=== PATIENT | male | born 1960 | race Caucasian/White ===

== ENCOUNTER 2023-09-23 17:33 | Inpatient (IN) | payer BC, SELFPAY ==
[2023-09-23] VITALS (17 sets, daily range): BP systolic 90–137; BP diastolic 54–80; PULSE 114–130; RESP 14–27; TEMP 37.1; O2SAT 65–97
--- NOTE | ~2023-09-23 | CT_ITS ---
EXAMINATION: CTA chest PE abdomen pel DATE: 09/23/2023 19:44 INDICATION: SOB, tachy, cachexia TECHNIQUE: Computed tomography angiography (CTA) of the chest was performed with 100 mL Omnipaque-350 intravenous contrast timed to evaluate the pulmonary arteries, followed by portal venous phase imagi ng of the abdomen and pelvis. Coronal maximum intensity projection 3D-reconstructions were created by the technologist. The dose-length product (DLP) was 1012.60 mGy-cm. Automated exposure control and i terative reconstruction technique were employed. COMPARISON: CT L-spine 03/31/2015. FINDINGS: CHEST: Lung parenchyma and airways: Patchy areas of groundglass opacity, most notably in the right upper lob e. Pleura: Unremarkable. Thoracic inlet, axillae and chest wall: . Diffuse body wall edema. Thoracic aorta: Moderate arch calcification. Mediastinum: Normal. Heart and pericardium: Cardiomegaly. Coronary artery calcifications: Moderate. Thoracic bones: No acute osseous finding. Pulmonary arteries: Study quality: Motion artifact in the lower lungs which limits evaluation of subs egmental pulmonary arteries. Otherwise, no pulmonary emboli detected. ABDOMEN/PELVIS: Liver: Hepatomegaly. Diffuse fatty infiltration. Heterogeneous enhancement with multiple areas of hyp er and hypoenhancement that may represent hepatic lesions Biliary/Gallbladder: Dilated gallbladder with wall hyperemia. No stones or sludge. No bile duct dilat ion. Pancreas: Heterogeneously enhancing pancreas with surrounding fluid and inflammatory change. Irregula r walled off appearing peripancreatic fluid collections anterior to the pancreatic head and in the le sser sac. Spleen: Normal. Adrenals:No mass. Kidneys: No suspicious mass, obstructing stone, or hydronephrosis. GI tract: Diffuse gastric small bowel and large bowel wall edema possibly related to cirrhosis and as cites. Diffuse mild dilation of small bowel. Normal appendix. Mesentery/Peritoneum: Large volume of complex ascites. Retroperitoneum: No mass. Pelvis: Pelvic organs are within normal limits. Soft Tissues: Significant body wall edema. Abdominopelvic bones: No acute osseous finding. IMPRESSION: Motion limited examination, with poor visualization of subsegmental lower lobe arteries. No central o r segmental acute pulmonary embolus. Pulmonary opacities may or present infection, including atypical/viral agents. Hepatomegaly, hepatic steatosis, and possible cirrhosis. Multiple hyper and hypoenhancing areas sugge stive of hepatic lesions. Recommend nonemergent but timely outpatient MRI of the liver. Gallbladder hydrops. Gallbladder wall hyperemia. Correlate with right upper quadrant pain and biliary labs. Heterogeneously enhancing pancreas with surrounding fluid collections, may represent acute pancreatit is with acute peripancreatic fluid collections. Necrotizing pancreatitis is not excluded. Mild diffusely dilated small bowel, no transition point, likely ileus. Large volume complex ascites, mass represent proteinaceous, hemorrhagic, or infectious debris. Diffuse anasarca. Reviewed, dictated and finalized at location K. HER GOODS MAKER IMPRESSION: Motion limited examination, with poor visualization of subsegmental lower lobe arteries. No central or segmental acute pulmonary embolus. Pulmonary opacities may or present infection, including atypical/viral agents. Hepatomegaly, hepatic steatosis, and possible cirrhosis. Multiple hyper and hyp oenhancing areas suggestive of hepatic lesions. Recommend nonemergent but timel y outpatient MRI of the liver. Gallbladder hydrops. Gallbladder wall hyperemia. Correlate with right upper mika drant pain and biliary labs. Heterogeneously enhancing pancreas with surrounding fluid col
--- NOTE | ~2023-09-23 | XR_ITS ---
XR chest 1V portable DATE: 09/26/2023 12:32 INDICATION: Shortness of breath TECHNIQUE: Portable AP chest on 09/26/2023 at 1226 hours COMPARISON: 09/24/2023 portable AP chest FINDINGS: Prominent patchy consolidating infiltrates are noted throughout the right lung and left low er lung in particular, suggesting bilateral pneumonia, with considerable worsening since 09/24/2023. Normal heart size. Aortic calcification. There is minimal if any pleural effusion. No pneumothorax. Some [place] B-lines are noted in addition to mild prominence of the minor fissure. Pulmonary intersti tial and subpleural edema is not excluded. Osteopenia. IMPRESSION: Worsening patchy consolidating infiltrates throughout the right lung and left lower lung, suggesting worsening bilateral pneumonia and/or pulmonary edema since 09/24/2023 Reviewed, dictated and finalized at location B. SEAL IMPRESSION: Worsening patchy consolidating infiltrates throughout the right mireille g and left lower lung, suggesting worsening bilateral pneumonia and/or pulmonar y edema since 09/24/2023
--- NOTE | ~2023-09-23 | US_ITS ---
EXAMINATION: US paracentesis abd w/image DATE: 09/25/2023 16:09 INDICATION: Ascites. TECHNIQUE: The skin was prepped and draped in sterile fashion. 1% lidocaine was used for local anesth esia. Under ultrasound guidance, a 5 Fr catheter with trochar was advanced into the ascites in the [facility] lower quadrant. Fluid was aspirated. The catheter was removed, and a dressing was applied. There were no immediate complications. FINDINGS: Ultrasound images demonstrate ascites and the catheter within the fluid. IMPRESSION: 1. Successful ultrasound-guided paracentesis yielding 4450 mL of cloudy yellow fluid. Reviewed, dictated and finalized at location A. ETIC DERMATOLOGIST
--- NOTE | ~2023-09-23 | CT_ITS ---
EXAMINATION: CT brain wo con DATE: 09/23/2023 19:34 INDICATION: AMS . TECHNIQUE: Computed tomography (CT) of the head was performed without intravenous contrast. The mA wa s adjusted according to patient size. Iterative reconstruction technique was employed. The dose-lengt h product was 681.00 mGy-cm. COMPARISON: None. FINDINGS: No acute intracranial hemorrhage or extra-axial fluid collection. No hydrocephalus, mass, or herniation. No acute ischemic infarct. Unremarkable dural venous sinus attenuation. No acute osseous abnormality. Small retention cysts or polyps in the left ethmoid sinus, the remaining aerated spaces are clear. Moderate atrophy and chronic white matter change. Atherosclerotic intracranial calcification. Old rig ht basal ganglia lacunar infarct. 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 IMPRESSION: No acute intracranial process. Reviewed, dictated and finalized at location K. WRAPPING MACHINE OPERATOR
--- NOTE | ~2023-09-23 | CT_ITS ---
EXAMINATION: CT abdomen pelvis wo con DATE: 09/25/2023 15:59 INDICATION: Ascites. Necrotic pancreatitis. TECHNIQUE: Computed tomography (CT) of the abdomen and pelvis was performed without intravenous contr ast. Automated exposure control and iterative reconstruction technique were employed. The dose-length product was 751.44 mGy-cm. COMPARISON: CT abdomen and pelvis 09/23/2023 FINDINGS: The visualized portions of the lung bases demonstrate patchy airspace opacities bilaterally , consistent with pneumonia. There are small pleural effusions. The heart size is normal. There are c oronary artery calcifications. No pericardial effusion. There is diffuse hepatic steatosis. The gallb ladder is distended. The spleen is normal. The pancreas is obscured by widespread edema of the intra- abdominal fat. The adrenal glands are normal. There are persistent bilateral contrast nephrograms, co nsistent with decreased kidney function. There is calcified atherosclerosis of the aorta and many of the other arteries. There is a Pro catheter in expected position. There are no dilated loops of bow el. There is widespread wall thickening of the colon. There is wall thickening of distal small bowel. There is a moderate volume of ascites. There is widespread body wall edema. There is severe lumbar s pondylosis. IMPRESSION: 1. Worsened diffuse lung disease, consistent with pneumonia. 2. Small pleural effusions. 3. Moderate volume of ascites. 4. Gallbladder distention, likely secondary to fasting. 5. Diffuse hepatic steatosis. 6. Wall thickening of small and large bowel, which may be interstitial edema or enterocolitis. Reviewed, dictated and finalized at location A. SION DIRECTOR
--- NOTE | ~2023-09-23 | XR_ITS ---
EXAMINATION: XR chest 1V portable Exam Date/Time: 09/24/2023 16:45 RECOVERY ADVOCATE HISTORY: increased SOB Comparison: None. RESULT: Lines, tubes, and devices: None. Lungs and pleura: Increasing ill-defined patchy and nodular groundglass opacities in the right lung, and in the left lower lung. Mild diffuse reticular opacities. Cardiomediastinal silhouette: Stable. Other: No acute osseous or upper abdominal finding. IMPRESSION: Worsening pneumonia with mild interstitial edema. Reviewed, dictated and finalized at location K. VERY ADVOCATE
--- NOTE | 2023-09-23 18:12 | ECG_ITS ---
Measurements Intervals [place] Rate: 122 P: LA: 0 QRS: 75 QRSD: 97 T: 205 QT: 364 QTc: 520 Interpretive Statements SUPRAVENTRICULAR TACHYCARDIA (SIGNIFICANT BASELINE ARTIFACT) VENTRICULAR PREMATURE COMPLEXES BORDERLINE ST-T WAVE ABNORMALITY- ANTEROLAT/INF LEADS BASELINE ARTIFACT- I, II, III, AVR, AVL, AVF, V1-V6 ABNORMAL ECG NO PREVIOUS ECG AVAILABLE FOR COMPARISON Electronically Signed On 09-23-2023 19:28:20 EMBEDDED DEVELOPER by Evan Gonzalez D.O.
--- NOTE | 2023-09-23 18:14 | ED.WEAKNESS ---
HPI - Weakness General Chief complaint: Weakness <Annie Rincon MD - Last Filed: 09/26/23 13:08> Stated complaint: I think my organs are shutting down <Annie Rincon MD - Last Filed: 09/26/23 13:08> Time Seen by Provider: 09/23/23 18:03 <Annie Rincon MD - Last Filed: 09/26/23 13:08> History of Present Illness HPI Narrative: Patient is a 63-year-old male with history of hypertension presenting with generalized weakness. Patient's family is at bedside and helps with the history. States that he has been losing a lot of weight over the last year. States that over the last month he has lost even more weight at a more rapid pace. He has a lot of abdominal pain, nausea, diarrhea. States that he has not been eating lately. Patient's family states that he has been increasingly weak and he was unable to even walk to the car today. Denies chest pain but states he gets short of breath with Mild exertion. States that his feet have also been swollen lately. No fevers or chills, numbness or weakness. <Annie Rincon MD - Last Filed: 09/26/23 13:08> Related Data Home medications: Home Medications Medication Instructions Recorded Confirmed alprazolam 0.25 mg tablet 0.25 mg PO HS 09/24/23 09/24/23 amlodipine 5 mg tablet 5 mg PO DAILY 09/24/23 09/24/23 vtsvtwweyuqvhiyf-ffsdqhldlbsyykf-ytyvwzcsh 1 tablet PO ONCE 09/24/23 09/24/23 2 mg-30 mg-200 mg tablet (Advil Allergy Sinus) dextroamphetamine-amphetamine 20 20 mg PO BID 09/24/23 09/24/23 mg tablet ibuprofen 600 mg tablet 600 mg PO TID PRN Pain 09/24/23 09/24/23 omeprazole 20 mg capsule,delayed 20 mg PO DAILY 09/24/23 09/24/23 release oxycodone-acetaminophen 10 mg-325 1 tablet PO Q4H 09/24/23 09/24/23 mg tablet <Annie Rincon MD - Last Filed: 09/26/23 13:08> Allergies/Adverse reactions: Allergies Allergy/AdvReac Type Severity Reaction Status Date / Time oxycodone [From Percocet] Allergy Rash Verified 09/24/23 19:49 <Annie Rincon MD - Last Filed: 09/26/23 13:08> Review of Systems Review of Systems: All systems reviewed & are unremarkable except as noted in HPI and below <Annie Rincon MD - Last Filed: 09/26/23 13:08> [facility] Family History Family History: Family History Other Unknown family medical history <Annie Rincon MD - Last Filed: 09/26/23 13:08> Social History Social History: Social History Smoking packs per day: 0.5 Smoking cigarettes per day: 10.0 Smoking status: Former smoker Tobacco type: cigarettes Alcohol intake: current Do You Feel Safe in your Home?: Yes Lack of Transportation: No Lack of Food: Never True Current Housing: I Have Housing Concerned About Future Housing: No Difficulty Paying Gas/Electric Bills: No Difficulty Paying for Meds: No Currently Unemployed: No Education: Decline to Answer Difficulty w/ Childcare or Family Care: No Spiritual care concerns: No <Annie Rincon MD - Last Filed: 09/26/23 13:08> Exam Narrative: GENERAL: Frail-appearing male sitting up in bed in no acute distress, pleasant cooperative HEAD: Normocephalic, atraumatic. EYES: PERRLA and EOMI. ENT: Mucous membranes dry NECK: Supple. CHEST: Clear to auscultation. No respiratory distress. HEART: tachycardic, regular rhythm ABDOMEN: Soft, mild epigastric tenderness without guarding or rebound EXTREMITIES: Normal range of motion. pitting edema to bilateral feet SKIN: Warm, dry NEURO: No focal deficits. Alert and oriented x3. PSYCH: Normal mood and affect. <Annie Rincon MD - Last Filed: 09/26/23 13:08> Course Reevaluation(s) Reevaluation #1: I assumed care of this patient at shift change this morning. Patient comfortably resting as per the nursing he has been restles
[2023-09-23] MEDS: SODIUM CHLORIDE 0.9% IV 1,000 ML 999 ML IV CONT ×3 (18:43→19:21)
[2023-09-23 18:44] LABS: Basophils Absolute Auto 0.1 K/mm3 (0.0-0.1); Basophils Percent Auto 0.6 % (0.2-1.2); Eosinophils Percent Auto 0.2 % (0-4.4); Hematocrit 28.7 % (42.0-52.0); Hemoglobin 9.4 g/dL (14.0-18.0); Immature Granulocyte Absolute 0.21 K/mm3 (0.00-0.031); Immature Granulocyte Percent A 1.2 % (0-0.5); Lymphocytes Absolute Auto 0.46 K/mm3 (0.9-3.2); Lymphocytes Percent Auto 2.6 % (18.3-44.2); Mean Corpuscular HGB Conc 32.8 g/dl (32-36); Mean Corpuscular Hemoglobin 35.3 pg (26-34); Mean Corpuscular Volume 107.9 fl (80-100); Mean Platelet Volume 11.1 fl (7.4-10.4); Monocytes Absolute Auto 0.9 K/mm3 (0.1-0.6); Monocytes Percent Auto 4.9 % (2.6-8.5); Neutrophils Absolute Auto 15.9 K/mm3 (1.3-6.7); Neutrophils Percent Auto 90.5 % (45.5-73.1); Nucleated Red Blood Cells Perc 0.2 % (0.0-0.2); Platelet Count Result 294 k/mm3 (150-375); Red Blood Count 2.66 M/mm3 (4.6-6.20); Red Cell Distribution Width 17.2 % (11.5-14.5); White Blood Count 17.6 K/mm3 (4.5-10.0)
[2023-09-23 18:57] LABS: Lactic Acid Reflex 8.7 mmol/L (0.7-2.0); Platelet Estimate Adequate (Adequate)
[2023-09-23 18:58] LABS: Macrocytosis 1+ (NORMAL); Schistocytes None Seen (NORMAL); Target Cells 1+ (NORMAL)
[2023-09-23 19:02] LABS: Alanine Aminotransferase 40 U/L (6-50); Albumin Level 1.6 g/dL (3.5-5.1); Alkaline Phosphatase 446 U/L (38-126); Anion Gap 17 mmol/L (8-16); Aspartate Amino Transferase 68 U/L (17-59); Blood Urea Nitrogen 21 mg/dL (9-20); Calcium 6.6 mg/dL (8.4-10.2); Carbon Dioxide 18 mmol/L (22-30); Chloride 93 mmol/L (98-107); Estimated Glomerular Filt Rate > 60; Glucose 60 mg/dL (65-110); Lipase 39 U/L (23-300); Magnesium 1.2 mg/dL (1.6-2.3); Potassium 3.7 mmol/L (3.4-5.0); Sodium 128 mmol/L (137-145)
[2023-09-23 19:10] LABS: Ethanol < 10 mg/dL (<10)
[2023-09-23 19:11] LABS: NT Pro B Type Natriuretic Pept 17500 pg/mL (19.9-100); Troponin I < 0.012 ng/mL (0.000-0.034)
[2023-09-23 19:13] LABS: Influenza A QL RT-PCR Negative (Negative); Influenza B QL RT-PCR Negative (Negative); RSV RNA, RT-PCR Negative (Negative); SARS-CoV-2 RNA PCR Negative (Negative)
[2023-09-23] MEDS: DEXTROSE 50% 25 GM/50 ML SYRINGE IV PUSH (19:13)
--- NOTE | 2023-09-23 19:23 | PC.NURSE ---
Pt placed on 2 L NC O2 for comfort due to increased WOB, oxygen on room air 92%, sat is now 97%.
--- NOTE | 2023-09-23 19:24 | PC.NURSE ---
Pt to CT scan via stretcher at this time.
[2023-09-23 19:37] LABS: Creatine Kinase 624 U/L (55-170)
--- NOTE | 2023-09-23 19:37 | PC.NURSE ---
care and report given to ELIZABETH Ortiz. all questions answered.
[2023-09-23] MEDS: LORazepam INJ (*CRX) 2 MG/ML VIAL IV PUSH ×3 (19:57→23:47)
[2023-09-23 20:09] LABS: Glucose Point of Care 121 mg/dl (65-105)
[2023-09-23 20:23] LABS: Fibrinogen 280 mg/dl (215-510)
[2023-09-23 20:57] LABS: INR 1.6; Prothrombin Time 19.8 Seconds (11.1-14.7)
[2023-09-23 20:58] LABS: D Dimer 3.51 ug/mL (<0.48); Partial Thromboplastin Time 39.2 SECONDS (22.3-36.8)
[2023-09-23 21:31] LABS: Reflex Lactic Acid Yes or No Add Lactic
[2023-09-23] MEDS: [UNRECOGNIZED DRUG - REMARK] 1 EACH XX (22:41)
[2023-09-23 22:54] LABS: Lactic Acid 3.1 mmol/L (0.7-2.0)
[2023-09-23] MEDS: PIPERACILLN/TAZ 3.375GM/NS50ML 3.375 GM/50 ML BAG IVPB (22:54)
[2023-09-23 23:07] LABS: Troponin I 0.012 ng/mL (0.000-0.034)
[2023-09-23] MEDS: VANCOMYCIN 2,000 MG/NS 500 ML 2,000 MG/500 ML BAG 250 MG IVPB (23:40)
[2023-09-23] MEDS: ALBUMIN HUMAN 25% 25 GM/100 ML 100 ML IVPB (23:52)
[2023-09-23] MEDS: HALOPERIDOL LACTATE 5 MG/ML VIAL IM (23:53)
[2023-09-23 23:54] LABS: Ammonia 49 umol/L (9-30)
[2023-09-24] VITALS (64 sets, daily range): BP systolic 71–169; BP diastolic 43–91; PULSE 90–138; RESP 0–99; TEMP 37.1; O2SAT 19–100; BMI 20.6
[2023-09-24 00:54] LABS: MRSA (PCR) NOT DETECTED (NOT DETECTE)
--- NOTE | 2023-09-24 00:58 | ECG_ITS ---
Measurements Intervals [place] Rate: 126 P: 47 AK: 91 QRS: 70 QRSD: 98 T: 92 QT: 331 QTc: 480 Interpretive Statements SINUS TACHYCARDIA WITH SHORT AK INTERVAL ATRIAL AND VENTRICULAR PREMATURE COMPLEXES BORDERLINE ST-T WAVE ABNORMALITY- DIFFUSE LEADS BASELINE WANDER- V4 ABNORMAL ECG COMPARED TO ECG 09/23/2023 18:51:07 SINUS TACHYCARDIA NOW PRESENT Electronically Signed On 09-24-2023 5:28:18 DECK STEWARD by Evan Gonzalez D.O.
[2023-09-24 01:23] LABS: Appearance Urine Clear (Clear); Color Urine Yellow (Yellow)
[2023-09-24 01:24] LABS: Bilirubin Urine 1+ (Negative); Blood Urine 1+ (Negative); Glucose Urine UA Negative (Negative); Ketones Urine Negative (Negative); Nitrate Urine Negative (Negative); Protein Urine 1+ mg/dL (Negative); Specific Grav Ur >= 1.030 (1.001-1.035)
[2023-09-24 01:25] LABS: Leukocyte Esterase Ur Negative LEU/UL (Negative); Urobilinogen Urine 0.2 mg/dL (<2.0)
[2023-09-24 01:27] LABS: Add Urine Microscopic? YES; WBC Urine 0-5 /hpf
[2023-09-24 01:28] LABS: Bacteria Urine 1+ /hpf
[2023-09-24 01:29] LABS: Troponin I < 0.012 ng/mL (0.000-0.034)
[2023-09-24] MEDS: LORazepam INJ (*CRX) 2 MG/ML VIAL IV PUSH ×3 (03:55→22:00)
--- NOTE | 2023-09-24 08:50 | PC.NURSE ---
0841 bed status check-no beds available.
--- NOTE | 2023-09-24 10:58 | PC.NURSE ---
pt to be seen getting restless, unable to complete appropriate CIWA, deb received from edp to give pt Ativan 1 mg ivp x1
[2023-09-24] MEDS: LORazepam INJ (*CRX) 2 MG/ML VIAL 1 MG IV PUSH (10:59)
--- NOTE | 2023-09-24 13:07 | PC.NURSE ---
No Bed assigned [facility] remains on wait list for bed at least a couple days per [place] at transfer center
--- NOTE | 2023-09-24 16:30 | PC.NURSE ---
AGAIN PT UNABLE TO PARTAKE IN CIWA SCREENING, PT DID RECEIVE ATIVAN 2 MG IVP. PT ALSO PLACED ON 2L NC. PT TO RECEIVE BREATHING BREATMENT PRIOR TO LEAVING ER, ORDER RECEIVED FROM DR JOHNSON
--- NOTE | 2023-09-24 16:42 | PC.NURSE ---
tech reports low o2 sat prior to leaving the dept. pt placed back on wall oxygen. pt has saturation of 92-100 on 2L NC. CHEST XRAY ORDERED
[2023-09-24] MEDS: ALBUTEROL SULFATE NEB 2.5 MG/3 ML INH 1.25 MG INHALATION (16:51)
[2023-09-24] MEDS: IPRATROPIUM BR 0.02% INH SOLN 0.5 MG/2.5 ML VIAL INHALATION (16:51)
[2023-09-24 17:01] LABS: Alveolar/Arterial O2 Gradient 16.2 mmHg; Base Excess ABG 2.8 mEq/l (+/-2.0); Carboxyhemoglobin 0.6 % THb (0-2.0); Fractional Inspired Oxygen 24 %; HCO3 ABG 27.9 mEq/l (22.0-26.0); Methemoglobin ABG 0.3 %THb (0-1.5); Oxygen Content ABG 11.6 %vol (16.0-22.0); Oxygen Saturation ABG 97.6 % (95.0-100.0); Oxyhemoglobin 95.3 % THb (90.0-100.0); PCO2 ABG 45.3 mmHg (35.0-45.0); PO2 FiO2 Ratio Arterial Blood 4.21 %; Reduced Hemoglobin 3.8 %THb (0-5.0); Total Hemoglobin 8.5 g/dL (12.0-18.0); pH ABG 7.407 (7.350-7.450)
[2023-09-24 17:02] LABS: Device NASAL CANNULA; Modified Allen's Test Pass; Site Drawn RIGHT RADIAL
[2023-09-24 17:23] LABS: Glucose Point of Care 68 mg/dl (65-105)
[2023-09-24 17:24] LABS: Basophils Absolute Auto 0.1 K/mm3 (0.0-0.1); Basophils Percent Auto 0.3 % (0.2-1.2); Eosinophils Percent Auto 0.1 % (0-4.4); Hematocrit 22.6 % (42.0-52.0); Hemoglobin 7.6 g/dL (14.0-18.0); Immature Granulocyte Absolute 0.14 K/mm3 (0.00-0.031); Immature Granulocyte Percent A 0.7 % (0-0.5); Lymphocytes Absolute Auto 0.41 K/mm3 (0.9-3.2); Lymphocytes Percent Auto 2.2 % (18.3-44.2); Mean Corpuscular HGB Conc 33.6 g/dl (32-36); Mean Corpuscular Hemoglobin 36.2 pg (26-34); Mean Corpuscular Volume 107.6 fl (80-100); Monocytes Percent Auto 5.1 % (2.6-8.5); Neutrophils Absolute Auto 17.4 K/mm3 (1.3-6.7); Neutrophils Percent Auto 91.6 % (45.5-73.1); Red Cell Distribution Width 17.7 % (11.5-14.5)
--- NOTE | 2023-09-24 17:27 | PC.NURSE ---
pt had repeat labs drawn, ABG done, chest xray. pt to staying ED until labs are back. BG WAS 68, AMP OF D50 given, vorb from Dr Saeed
[2023-09-24 17:34] LABS: Alanine Aminotransferase 56 U/L (6-50); Albumin Level 1.7 g/dL (3.5-5.1); Alkaline Phosphatase 367 U/L (38-126); Anion Gap 3 mmol/L (8-16); Aspartate Amino Transferase 145 U/L (17-59); Bilirubin,Total 0.9 mg/dL (0.2-1.3); Blood Urea Nitrogen 23 mg/dL (9-20); Calcium 6.6 mg/dL (8.4-10.2); Carbon Dioxide 30 mmol/L (22-30); Chloride 99 mmol/L (98-107); Estimated CRCL calculation 57 ml/min; Estimated Glomerular Filt Rate 56; Glucose 72 mg/dL (65-110); Potassium 3.3 mmol/L (3.4-5.0); Sodium 132 mmol/L (137-145)
[2023-09-24] MEDS: VANCOMYCIN 1,500 MG/NS 500 ML 1,500 MG/500 ML BAG 250 MG IVPB (17:36)
[2023-09-24] MEDS: DEXTROSE 50% 25 GM/50 ML SYRINGE (17:37)
[2023-09-24 17:40] LABS: Ammonia 36 umol/L (9-30)
[2023-09-24 18:00] LABS: Platelet Estimate Adequate (Adequate)
[2023-09-24 18:01] LABS: Anisocytosis 2+ (NORMAL); Macrocytosis 1+ (NORMAL); Schistocytes None Seen (NORMAL)
--- NOTE | 2023-09-24 18:45 | ADMGEN ---
This patient, Elias Tovar, was admitted to IMU Room 206-02. Patient/family oriented to hospital policies and general routines including ID bracelet, bed and alarms, visiting hours, pain management, procedures, bathroom and other care routines, personal items, smoking policy, room service/diet, and visiting hours. Information on how to activate the Rapid Response Team has been discussed. Patient/Family are encouraged to report perceived risks to care and to ask questions if they do not understand what they are told or what they should do.
[2023-09-24 20:33] LABS: Glucose Point of Care 87 mg/dl (65-105)
[2023-09-24] MEDS: DEXTROSE 10% 1,000 ML 65 ML IV CONT (21:50)
[2023-09-24 23:09] LABS: Hematocrit 24.5 % (42.0-52.0); Hemoglobin 8.2 g/dL (14.0-18.0); Mean Corpuscular HGB Conc 33.5 g/dl (32-36); Mean Corpuscular Hemoglobin 35.8 pg (26-34); Mean Platelet Volume 10.3 fl (7.4-10.4); Platelet Count Result 259 k/mm3 (150-375); Red Blood Count 2.29 M/mm3 (4.6-6.20); Red Cell Distribution Width 17.6 % (11.5-14.5)
[2023-09-24 23:20] LABS: INR 1.5; Prothrombin Time 18.7 Seconds (11.1-14.7)
[2023-09-24 23:21] LABS: Anion Gap 5 mmol/L (8-16); Blood Urea Nitrogen 23 mg/dL (9-20); Calcium 6.7 mg/dL (8.4-10.2); Carbon Dioxide 26 mmol/L (22-30); Chloride 100 mmol/L (98-107); Estimated CRCL calculation 63 ml/min; Estimated Glomerular Filt Rate > 60; Glucose 102 mg/dL (65-110); Magnesium 1.5 mg/dL (1.6-2.3); Phosphorus 3.7 mg/dL (2.5-4.5); Potassium 2.9 mmol/L (3.4-5.0); Sodium 131 mmol/L (137-145)
[2023-09-24 23:22] LABS: Partial Thromboplastin Time 44.9 SECONDS (22.3-36.8)
[2023-09-25] VITALS (16 sets, daily range): BP systolic 90–127; BP diastolic 56–77; PULSE 109–133; RESP 16–24; TEMP 36.2–37; O2SAT 96–100
[2023-09-25 00:35] LABS: Glucose Point of Care 112 mg/dl (65-105)
[2023-09-25] MEDS: LORazepam INJ (*CRX) 2 MG/ML VIAL IV PUSH ×3 (01:04→21:39)
[2023-09-25] MEDS: MAGNESIUM SULF 2 GM/WATER 50ML 2 GM/50 ML BAG IVPB (01:06)
[2023-09-25] MEDS: POTASSIUM CHLORIDE INJ 40 MEQ in SODIUM CHLORIDE 0.9% IV 500 ML 130 MEQ IVPB (01:50)
--- NOTE | 2023-09-25 02:02 | PM.IMHP ---
H&P: HPI History of Present Illness Date/Time: 09/25/23 02:02 Chief Complaint: Abdominal pain. Narrative: This is a 63-year-old male with past medical history significant for hepatic cirrhosis, alcohol dependence. Patient was brought to the emergency room for evaluation due to weight loss, vomiting, poor per orally intake, abdominal pain, altered mental status. Most of the history was obtained by family. At the time of my visit patient was lethargic unable to contribute in a meaningful way to history taking. Preliminary workup was significant for CT of abdomen and pelvis with necrotizing pancreatitis and lung infiltrates. Patient is currently awaiting bed at [facility]. EXAMINATION: CT brain wo con DATE: 09/23/2023 19:34 INDICATION: AMS . TECHNIQUE: Computed tomography (CT) of the head was performed without intravenous contrast. The mA was adjusted according to patient size. Iterative reconstruction technique was employed. The dose-length product was 681.00 mGy-cm. COMPARISON: None. FINDINGS: No acute intracranial hemorrhage or extra-axial fluid collection. No hydrocephalus, mass, or herniation. No acute ischemic infarct. Unremarkable dural venous sinus attenuation. No acute osseous abnormality. Small retention cysts or polyps in the left ethmoid sinus, the remaining aerated spaces are clear. Moderate atrophy and chronic white matter change. Atherosclerotic intracranial calcification. Old right basal ganglia lacunar infarct. 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 IMPRESSION:? No acute intracranial process. EXAMINATION: CTA chest PE abdomen pel DATE: 09/23/2023 19:44 INDICATION: SOB, tachy, cachexia TECHNIQUE: Computed tomography angiography (CTA) of the chest was performed with 100 mL Omnipaque-350 intravenous contrast timed to evaluate the pulmonary arteries, followed by portal venous phase imaging of the abdomen and pelvis. Coronal maximum intensity projection 3D-reconstructions were created by the technologist. The dose-length product (DLP) was 1012.60 mGy-cm. Automated exposure control and iterative reconstruction technique were employed. COMPARISON: CT L-spine 03/31/2015. ? FINDINGS:? CHEST: Lung parenchyma and airways: Patchy areas of groundglass opacity, most notably in the right upper lobe. Pleura: Unremarkable. Thoracic inlet, axillae and chest wall: . Diffuse body wall edema. Thoracic aorta: Moderate arch calcification. Mediastinum: Normal. Heart and pericardium: Cardiomegaly. Coronary artery calcifications: Moderate. Thoracic bones: No acute osseous finding. Pulmonary arteries: Study quality: Motion artifact in the lower lungs which limits evaluation of subsegmental pulmonary arteries. Otherwise, no pulmonary emboli detected. ABDOMEN/PELVIS: Liver: Hepatomegaly. Diffuse fatty infiltration. Heterogeneous enhancement with multiple areas of hyper and hypoenhancement that may represent hepatic lesions? Biliary/Gallbladder: Dilated gallbladder with wall hyperemia. No stones or sludge. No bile duct dilation. Pancreas: Heterogeneously enhancing pancreas with surrounding fluid and inflammatory change. Irregular walled off appearing peripancreatic fluid collections anterior to the pancreatic head and in the lesser sac. Spleen: Normal. Adrenals:No mass. Kidneys: No suspicious mass, obstructing stone, or hydronephrosis. GI tract: Diffuse gastric small bowel and large bowel wall edema possibly related to cirrhosis and ascites. Diffuse mild dilation of small bowel. Normal appendix. Mesentery/Peritoneum: Large volume of complex ascites. Retroperitoneum: No mass. Pelvis: Pelvic organs are within normal limits. Soft Tissues: Significant body wall edema. Abdominopelvic bones:? No acute osseous finding. IMPRESSION: Motion limited examination, with poor visualization of subsegmental lower lobe arteries. No central or segmental acute pulmonary embolus. Pulmonary opacities may or present infection, including atyp
[2023-09-25 05:53] LABS: IFOB Positive Control Positive; Immunochemical Fecal Occult Bl Positive (N)
[2023-09-25 06:40] LABS: Glucose Point of Care 91 mg/dl (65-105)
[2023-09-25] MEDS: PIPERACILLN/TAZ 3.375GM/NS50ML 3.375 GM/50 ML BAG IVPB (07:01)
[2023-09-25 08:00] LABS: Glucose Point of Care 112 mg/dl (65-105)
[2023-09-25 09:10] LABS: Basophils Percent Auto 0.2 % (0.2-1.2); Eosinophils Absolute Auto 0.1 K/mm3 (0-0.3); Eosinophils Percent Auto 0.2 % (0-4.4); Hematocrit 23.2 % (42.0-52.0); Hemoglobin 7.7 g/dL (14.0-18.0); Immature Granulocyte Absolute 0.24 K/mm3 (0.00-0.031); Immature Granulocyte Percent A 1.1 % (0-0.5); Lymphocytes Absolute Auto 0.38 K/mm3 (0.9-3.2); Lymphocytes Percent Auto 1.7 % (18.3-44.2); Mean Corpuscular HGB Conc 33.2 g/dl (32-36); Mean Corpuscular Hemoglobin 36.2 pg (26-34); Mean Corpuscular Volume 108.9 fl (80-100); Mean Platelet Volume 10.2 fl (7.4-10.4); Monocytes Absolute Auto 0.9 K/mm3 (0.1-0.6); Neutrophils Absolute Auto 20.8 K/mm3 (1.3-6.7); Neutrophils Percent Auto 92.8 % (45.5-73.1); Platelet Count Result 237 k/mm3 (150-375); Red Blood Count 2.13 M/mm3 (4.6-6.20); Red Cell Distribution Width 17.6 % (11.5-14.5); White Blood Count 22.4 K/mm3 (4.5-10.0)
[2023-09-25 09:30] LABS: Alanine Aminotransferase 66 U/L (6-50); Albumin Level 1.7 g/dL (3.5-5.1); Alkaline Phosphatase 421 U/L (38-126); Anion Gap 2 mmol/L (8-16); Aspartate Amino Transferase 145 U/L (17-59); Bilirubin,Total 0.9 mg/dL (0.2-1.3); Blood Urea Nitrogen 22 mg/dL (9-20); Calcium 7.1 mg/dL (8.4-10.2); Carbon Dioxide 31 mmol/L (22-30); Chloride 100 mmol/L (98-107); Estimated CRCL calculation 69 ml/min; Estimated Glomerular Filt Rate > 60; Glucose 138 mg/dL (65-110); Potassium 3.2 mmol/L (3.4-5.0); Sodium 133 mmol/L (137-145)
[2023-09-25 09:31] LABS: Magnesium 1.8 mg/dL (1.6-2.3); Phosphorus 3.5 mg/dL (2.5-4.5)
--- NOTE | 2023-09-25 09:45 | PC.NURSE ---
0933: Britt Tovar reports she would like to make pt comfort care. States He doesn't want to live like this, he is ready to go. requesting ativan and morphine be given, pt be made DNR, and to speak with MD. Call placed to Dr. Oconnor with no answer. Elisha, Junior Software Developer, made aware. Atvian given per [facility] protocol.
[2023-09-25 09:52] LABS: Vancomycin Trough 14.4 ug/mL (10.0-20.0)
[2023-09-25 10:24] LABS: Glucose Point of Care 81 mg/dl (65-105)
--- NOTE | 2023-09-25 10:57 | PM.IMPN ---
Progress Note: A&P Assessment and Plan (1) Sepsis: Qualifiers: Sepsis type: sepsis due to unspecified organism Code(s): A41.9 - Sepsis, unspecified organism Status: Acute Assessment and Plan: Vancomycin and Zosyn, initiated 09/24 Leuk increased, switched to meropenem 09/25 Cultures in progress (2) Cirrhosis: Code(s): K74.60 - Unspecified cirrhosis of liver Status: Acute Assessment and Plan: Consult GI pending Paracentesis 09/25 with over 4L removed, cytology and studies sent CT abd + pelvis noted Lasix given x 1 (3) Pancreatitis: Code(s): K85.90 - Acute pancreatitis without necrosis or infection, unspecified Status: Acute Assessment and Plan: Patient awaiting bed at tertiary center Supportive care NPO See above (4) Alcohol dependence: Code(s): F10.20 - Alcohol dependence, uncomplicated Status: Acute Assessment and Plan: On CIWA protocol, ativan as needed Continue to monitor (5) Chronic diarrhea: Code(s): K52.9 - Noninfective gastroenteritis and colitis, unspecified Status: Acute Assessment and Plan: Continue to monitor (6) Pneumonia: Code(s): J18.9 - Pneumonia, unspecified organism Status: Acute Assessment and Plan: noted on CT, cont vanc + meropenem Check PCT, CRP Plan DVT prophylaxis with SCDs GI prophylaxis not indicated Code status full code Subjective Date/time seen: 09/25/23 10:57 Interval history: 63-year-old male with history of cirrhosis and alcohol dependence being brought in for altered mental status and is currently being treated for necrotizing pancreatitis, on the waiting list for a bed at [facility]. Patient is somnolent and confused with family at bedside. No events, afebrile. Some discussion amongst family members regarding prognosis and goals of care. All questions answered. Review of Systems Review of Systems: ROS unobtainable: Yes unobtainable due to mental status Exam Narrative: General: No acute distress, confused, somnolent HEENT: Atraumatic, normocephalic, mucous membranes moist CV: Regular rate and rhythm, S1, S2 Lungs: Clear to auscultation bilaterally, no rales or crackles noted, no wheezes, good air entry Abdomen: Distended, hypoactive BS, tympanic Extremities: Normal to inspection Skin: No rashes noted, no lesions or wounds seen Psych: Unable to assess Objective Data Vital Signs Vital Signs: Vital Signs - 24 hr 09/24/23 12:00 09/24/23 12:18 09/24/23 12:30 Temperature Pulse Rate 112 H 126 H 119 H Respiratory Rate 20 13 21 H Blood Pressure 107/73 Pulse Oximetry 95 Oxygen Delivery Oxygen Flow Rate 09/24/23 13:00 09/24/23 13:50 09/24/23 14:00 Temperature Pulse Rate 129 H 130 H 130 H Respiratory Rate 17 18 17 Blood Pressure 116/74 Pulse Oximetry 94 Oxygen Delivery Oxygen Flow Rate 09/24/23 14:15 09/24/23 14:16 09/24/23 14:37 Temperature Pulse Rate 131 H 128 H 115 H Respiratory Rate 15 20 13 Blood Pressure 125/72 Pulse Oximetry Oxygen Delivery Oxygen Flow Rate 09/24/23 14:45 09/24/23 15:42 09/24/23 16:52 Temperature Pulse Rate 128 H 124 H 138 H Respiratory Rate 19 20 16 Blood Pressure 100/69 100/69 Pulse Oximetry 97 96 Oxygen Delivery Oxygen Flow Rate 09/24/23 17:30 09/24/23 17:33 09/24/23 18:54 Temperature Pulse Rate 124 H 122 H Respiratory Rate 18 Blood Pressure 102/68 Pulse Oximetry 98 98 Oxygen Delivery Nasal Cannula Oxygen Flow Rate 2 09/24/23 19:00 09/24/23 18:45 09/24/23 20:00 Temperature 98.7 F Pulse Rate 128 H 136 H Respiratory Rate 18 16 Blood Pressure 105/64 124/76 Pulse Oximetry 98 100 100 Oxygen Delivery Nasal Cannula Oxygen Flow Rate 2 09/24/23 20:00 09/24/23 22:00 09/25/23 00:00 Temperature 98.2 F Pulse Rate 118 H 133 H 111 H Respiratory Rate 16 Blood Pressu
--- NOTE | 2023-09-25 11:42 | PC.NURSE ---
Dr. Oconnor called. Advised that family would like to discuss pt being placed on comfort care. MD advised to place Hospice consult and to given prn Morphine. Britt requesting daughters of pt not be made aware of Morphine. Discussed that scientific technical writer is uncomfortable initiating comfort measures without the knowledge of family currently present at bedside. Britt agreeable to wait to give Morphine, requesting family meeting with MD to discuss prognosis and transition to comfort care.
[2023-09-25 11:58] LABS: Glucose Point of Care 126 mg/dl (65-105)
--- NOTE | 2023-09-25 12:45 | PC.NURSE ---
Dr. Oconnor at bedside. Reports to family that pancreatitis is typically responsive to antibiotics. Advised to move forward with antibiotic treatment for pancreatitis to see if pt will improve. Family agreeable to plan of care. Britt confirms pt will continue to be a DNR, comfort measures withdrawn.
[2023-09-25] MEDS: MEROPENEM 1 GM/NS 100 ML 1 GM/100 ML BAG IVPB ×2 (13:07→22:43)
[2023-09-25] MEDS: FUROSEMIDE INJ 40 MG/4 ML VIAL IV PUSH (13:38)
[2023-09-25 13:53] LABS: Basophils Percent Auto 0.1 % (0.2-1.2); Hematocrit 25.7 % (42.0-52.0); Hemoglobin 8.3 g/dL (14.0-18.0); Immature Granulocyte Absolute 0.21 K/mm3 (0.00-0.031); Immature Granulocyte Percent A 0.9 % (0-0.5); Lymphocytes Absolute Auto 0.37 K/mm3 (0.9-3.2); Lymphocytes Percent Auto 1.7 % (18.3-44.2); Mean Corpuscular HGB Conc 32.3 g/dl (32-36); Mean Corpuscular Hemoglobin 35.8 pg (26-34); Mean Corpuscular Volume 110.8 fl (80-100); Mean Platelet Volume 10.2 fl (7.4-10.4); Monocytes Absolute Auto 1.1 K/mm3 (0.1-0.6); Monocytes Percent Auto 4.7 % (2.6-8.5); Neutrophils Absolute Auto 20.6 K/mm3 (1.3-6.7); Neutrophils Percent Auto 92.6 % (45.5-73.1); Platelet Count Result 201 k/mm3 (150-375); Red Blood Count 2.32 M/mm3 (4.6-6.20); Red Cell Distribution Width 17.8 % (11.5-14.5); White Blood Count 22.2 K/mm3 (4.5-10.0)
[2023-09-25 14:05] LABS: Lactic Acid Reflex 1.5 mmol/L (0.7-2.0)
[2023-09-25 14:16] LABS: Hypochromasia 1+ (NORMAL); Platelet Estimate Adequate (Adequate); Schistocytes None Seen (NORMAL)
[2023-09-25 14:17] LABS: Alanine Aminotransferase 72 U/L (6-50); Albumin Level 1.9 g/dL (3.5-5.1); Alkaline Phosphatase 538 U/L (38-126); Anion Gap 6 mmol/L (8-16); Anisocytosis 1+ (NORMAL); Aspartate Amino Transferase 139 U/L (17-59); Bilirubin,Total 0.8 mg/dL (0.2-1.3); Blood Urea Nitrogen 22 mg/dL (9-20); Calcium 7.2 mg/dL (8.4-10.2); Carbon Dioxide 26 mmol/L (22-30); Chloride 100 mmol/L (98-107); Estimated CRCL calculation 76 ml/min; Estimated Glomerular Filt Rate > 60; Glucose 137 mg/dL (65-110); Lipase 14 U/L (23-300); Potassium 3.2 mmol/L (3.4-5.0); Sodium 132 mmol/L (137-145); Target Cells 1+ (NORMAL)
[2023-09-25] MEDS: THIAMINE 500 MG/NS 100 ML 500 MG/100 ML BAG 200 MG IVPB (14:21)
[2023-09-25 14:28] LABS: Glucose Point of Care 133 mg/dl (65-105)
[2023-09-25 14:36] LABS: CRP 34.9 mg/dL (<1.0)
[2023-09-25 14:39] LABS: Procalcitonin 4.7 ng/mL
--- NOTE | 2023-09-25 16:46 | WPDGICN ---
Assessment and Plan Assessment and plan (1) Somnolence: Code(s): R40.0 - Somnolence Status: Acute Assessment and Plan: although his ammonia level is only slightly elevated, I believe that at least some of his altered mental status is due to hepatic encephalopathy. Because he cannot take anything by mouth they will give him a lactulose enema immediately. he did have a CT scan of the head 2 days ago which was unremarkable and showed no acute lesions (2) Alcohol dependence: Code(s): F10.20 - Alcohol dependence, uncomplicated Status: Acute Assessment and Plan: The family states that he has been a heavy drinker for years, mostly [facility] (3) Cirrhosis: Code(s): K74.60 - Unspecified cirrhosis of liver Status: Acute Assessment and Plan: although this is listed on the admission note, the family states that they were never told of any liver disease until this admission and that his primary care provider knows nothing about him having had liver disease in the past. (4) Pancreatitis: Code(s): K85.90 - Acute pancreatitis without necrosis or infection, unspecified Status: Acute Assessment and Plan: Lipase actually is low which suggest chronic pancreatitis. CT scan shows evidence of acute pancreatitis with surrounding fluid inflammatory change (5) Weight loss: Code(s): R63.4 - Abnormal weight loss Status: Acute Assessment and Plan: he apparently has lost a significant amount of weight this year and does not eat much of anything nutrition is. (6) Macrocytic anemia: Code(s): D53.9 - Nutritional anemia, unspecified Status: Acute Assessment and Plan: hemoglobin is 8.3. MCV is 110. 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 (7) Leukocytosis: Code(s): D72.829 - Elevated white blood cell count, unspecified Status: Acute Assessment and Plan: I explained to the family that he may have SBP. A paracentesis should help us determine that. He is on meropenem for presumed sepsis Plan He is on a waiting list for [facility]. The patient's family understands that it is often days before the patient is accepted. To me his prognosis looks very guarded I discussed his situation with family. Told him that I can help treat his hepatic encephalopathy and will start with lactulose enemas. Will also look for worsening liver function. GI Consult Note Consult date/time: 09/25/23 16:46 HPI: Elias Tovar is a 63 year old male was brought to the hospital 2 days ago because of progressive weight loss over the past year and also severe weakness. The family states that he was confused, speaking but hard to understand on Friday. After being admitted here he became progressively less arousable and now is unresponsive and not communicative. The patient's states that he was uncomfortable and moving somewhat prior to going downstairs for paracentesis which was done just hours ago. Since then he has been resting and not speaking. I could not get him to speak to me. The history is that he is an ex lastly heavy drinker of [facility] and consequently does not eat very well. The hospitalist note states that he has a history significant for hepatic cirrhosis and. The family however states that they were never told before now that he has liver disease and a called his primary care provider who told them that his blood tests were normal just a few months ago. He has never been hospitalized for alcohol withdrawal syndrome. He was still drinking alcohol Friday when he came here and that was the day that he was in most agitated and restless. Since then he has not had any agitation but has she has become more and more sedated. Review of Systems Review of Systems: All systems reviewed & are unremarkable except as noted in HPI and below [facility] Family Histo
--- NOTE | 2023-09-25 17:13 | ECG_ITS ---
Measurements Intervals [place] Rate: 121 P: 14 NH: 92 QRS: 47 QRSD: 102 T: 85 QT: 263 QTc: 374 Interpretive Statements SINUS TACHYCARDIA WITH SHORT NH INTERVAL VENTRICULAR PREMATURE COMPLEXES NONSPECIFIC ST-T WAVE ABNORMALITY- DIFFUSE LEADS BASELINE ARTIFACT- II, III, AVF, V3-V6 ABNORMAL ECG COMPARED TO ECG 09/24/2023 01:03:11 NO SIGNIFICANT CHANGES Electronically Signed On 09-26-2023 6:28:33 [employer]GORITHM DEVELOPER by Evan Gonzalez D.O.
[2023-09-25 17:19] LABS: Glucose Point of Care 130 mg/dl (65-105)
[2023-09-25 19:06] LABS: Glucose Point of Care 113 mg/dl (65-105)
[2023-09-25] MEDS: VANCOMYCIN 1,750 MG/NS 500 ML 1,750 MG/500 ML BAG 250 MG IVPB (19:07)
[2023-09-25] MEDS: LACTULOSE ENEMA 200 GM/1,000 ML ENEMA RECTAL (19:08)
[2023-09-25 19:19] LABS: Appearance Peritoneal Fluid Cloudy (Clear); Color Peritoneal Fluid Yellow (Colorless); Source Peritoneal Fluid Peritoneal Fluid
[2023-09-25 19:20] LABS: Lymphocytes Peritoneal Fluid 3 %; Macrophages Peritoneal Fluid 2 %; Neutrophils Peritoneal Fluid 95 % (0-25); Nucleated Cells Peritoneal Flu 23510 /uL (0-500); RBC Peritoneal Fluid 5000 /uL (0-100000)
[2023-09-25 22:21] LABS: Carcinoembryonic Antigen 8.8 ng/mL (0.0-3.0)
[2023-09-26] VITALS (15 sets, daily range): BP systolic 107–130; BP diastolic 57–80; PULSE 111–135; RESP 16–28; TEMP 36.4–37.1; O2SAT 91–100
[2023-09-26] LABS: Glucose Point of Care 70 mg/dl (65-105)
[2023-09-26 00:23] LABS: MRSA (PCR) NOT DETECTED (NOT DETECTE)
[2023-09-26 05:20] LABS: Basophils Percent Auto 0.2 % (0.2-1.2); Eosinophils Percent Auto 0.2 % (0-4.4); Hematocrit 25.3 % (42.0-52.0); Hemoglobin 8.2 g/dL (14.0-18.0); Immature Granulocyte Absolute 0.11 K/mm3 (0.00-0.031); Immature Granulocyte Percent A 0.6 % (0-0.5); Lymphocytes Percent Auto 1.6 % (18.3-44.2); Mean Corpuscular HGB Conc 32.4 g/dl (32-36); Mean Corpuscular Hemoglobin 35.7 pg (26-34); Mean Platelet Volume 10.2 fl (7.4-10.4); Monocytes Absolute Auto 0.8 K/mm3 (0.1-0.6); Neutrophils Percent Auto 93.4 % (45.5-73.1); Platelet Count Result 168 k/mm3 (150-375); Red Cell Distribution Width 17.5 % (11.5-14.5); White Blood Count 19.3 K/mm3 (4.5-10.0)
[2023-09-26] MEDS: MEROPENEM 1 GM/NS 100 ML 1 GM/100 ML BAG IVPB ×3 (05:21→21:44)
[2023-09-26 05:32] LABS: Alanine Aminotransferase 74 U/L (6-50); Albumin Level 1.7 g/dL (3.5-5.1); Alkaline Phosphatase 658 U/L (38-126); Anion Gap 2 mmol/L (8-16); Aspartate Amino Transferase 124 U/L (17-59); Bilirubin,Total 0.8 mg/dL (0.2-1.3); Blood Urea Nitrogen 21 mg/dL (9-20); Calcium 7.2 mg/dL (8.4-10.2); Carbon Dioxide 31 mmol/L (22-30); Chloride 102 mmol/L (98-107); Estimated CRCL calculation 85 ml/min; Estimated Glomerular Filt Rate > 60; Glucose 88 mg/dL (65-110); Potassium 3.1 mmol/L (3.4-5.0); Sodium 135 mmol/L (137-145)
[2023-09-26 07:07] LABS: Hypochromasia 1+ (NORMAL); Macrocytosis 1+ (NORMAL); Platelet Estimate Adequate (Adequate)
[2023-09-26 07:08] LABS: Schistocytes None Seen (NORMAL)
--- NOTE | 2023-09-26 07:08 | WPDGIPROGNO ---
Progress Note: A&P Assessment and Plan (1) Somnolence: Code(s): R40.0 - Somnolence Status: Acute Assessment and Plan: although his ammonia level is only slightly elevated, I believe that at least some of his altered mental status is due to hepatic encephalopathy. Because he cannot take anything by mouth they will give him a lactulose enema immediately. he did have a CT scan of the head 2 days ago which was unremarkable and showed no acute lesions 09/26/2023 today he is not a somnolent but he remains confused. (2) Alcohol dependence: Code(s): F10.20 - Alcohol dependence, uncomplicated Status: Acute Assessment and Plan: The family states that he has been a heavy drinker for years, mostly [facility], straight (3) Cirrhosis: Code(s): K74.60 - Unspecified cirrhosis of liver Status: Acute Assessment and Plan: although this is listed on the admission note, the family states that they were never told of any liver disease until this admission and that his primary care provider knows nothing about him having had liver disease in the past. (4) Pancreatitis: Code(s): K85.90 - Acute pancreatitis without necrosis or infection, unspecified Status: Acute Assessment and Plan: Lipase actually is low which suggest chronic pancreatitis. CT scan shows evidence of acute pancreatitis with surrounding fluid inflammatory change (5) Weight loss: Code(s): R63.4 - Abnormal weight loss Status: Acute Assessment and Plan: he apparently has lost a significant amount of weight this year and does not eat much of anything nutrition is. (6) Macrocytic anemia: Code(s): D53.9 - Nutritional anemia, unspecified Status: Acute Assessment and Plan: hemoglobin is 8.3. MCV is 110. 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 (7) Leukocytosis: Code(s): D72.829 - Elevated white blood cell count, unspecified Status: Acute Assessment and Plan: I explained to the family that he may have SBP. A paracentesis should help us determine that. He is on meropenem for presumed sepsis (8) Elevated liver enzymes: Code(s): R74.8 - Abnormal levels of other serum enzymes Status: Acute Assessment and Plan: 09/07 minimal changes in liver enzymes. Actually alkaline phosphatase is a bit higher, 658 today versus 446 on admission. Plan He is on a waiting list for [facility]. The patient's family understands that it is often days before the patient is accepted. To me his prognosis looks very guarded I discussed his situation with family. Told him that I can help treat his hepatic encephalopathy and will start with lactulose enemas. Will also look for worsening liver function. INR is 1.5, slightly lower. This is a good prognostic sign. Subjective Date/time seen: 09/26/23 07:08 He is confused, fidgeting in his bed. Not somnolent like he was yesterday evening When I could not arouse him. Exam Narrative: today he is not as obtunded as he was yesterday. He is confused reach you for things in his med but seems to have no distress or pain. Const: Nutritional Appearance: thin HENMT: Head: normal to inspection Mouth: Yes Normal oral and palatal mucosa present Eyes: Pupils: Pupil size comments ( Small) Neck: Neck: normal visual inspection Chest: Chest palpation & inspection: normal inspection of the chest Resp: Effort & Inspection: no audible wheezes, no cough and decreased respiratory effort ( shallow breathing) Auscultation: clear to auscultation bilaterally Cardio: Rate: regular rate Rhythm: regular rhythm GI: Inspection: scaphoid GI Palp: No abdominal tenderness, Yes Soft to palpation and Yes No hepatosplenomegaly present Auscultation: normal bowel sounds Skin: General skin exam: normal color and no jaundice Neuro: Speech: normal sp
[2023-09-26] MEDS: LORazepam INJ (*CRX) 2 MG/ML VIAL IV PUSH (09:08)
[2023-09-26] MEDS: THIAMINE 500 MG/NS 100 ML 500 MG/100 ML BAG 200 MG IVPB (09:08)
--- NOTE | 2023-09-26 10:47 | PM.IMPN ---
Progress Note: A&P Assessment and Plan (1) Sepsis: Qualifiers: Sepsis type: sepsis due to unspecified organism Code(s): A41.9 - Sepsis, unspecified organism Status: Acute Assessment and Plan: Vancomycin and Zosyn, initiated 09/24 Leuk increased, switched to meropenem 09/25 Cultures in progress, suspect source is intraabdominal 09/25: PCT elevated at 4.7, CRP 34.9, cont current management, cont to monitor, stable with guarded prognosis 09/26: recheck labs tomorrow, cont current management (2) Cirrhosis: Code(s): K74.60 - Unspecified cirrhosis of liver Status: Acute Assessment and Plan: Consult GI appreciated, check ammonia, lactulose enema given Paracentesis 09/25 with over 4L removed, cytology and studies sent CT abd + pelvis noted with suspected chronic panc with possible necrosis 09/25: Lasix given x 1 (3) Pancreatitis: Code(s): K85.90 - Acute pancreatitis without necrosis or infection, unspecified Status: Acute Assessment and Plan: Patient awaiting bed at tertiary center Supportive care, NPO See above (4) Alcohol dependence: Code(s): F10.20 - Alcohol dependence, uncomplicated Status: Acute Assessment and Plan: On CIWA protocol, ativan as needed Continue to monitor (5) Chronic diarrhea: Code(s): K52.9 - Noninfective gastroenteritis and colitis, unspecified Status: Acute Assessment and Plan: Continue to monitor (6) Pneumonia: Code(s): J18.9 - Pneumonia, unspecified organism Status: Acute Assessment and Plan: noted on CT, cont vanc + meropenem, see above Plan DVT prophylaxis with SCDs GI prophylaxis not indicated Code status full code Subjective Date/time seen: 09/26/23 10:47 Interval history: 63-year-old male with history of cirrhosis and alcohol dependence being brought in for altered mental status and is currently being treated for necrotizing pancreatitis, on the waiting list for a bed at [facility]. More alert today, less confused. No events. no fevers. less restless Review of Systems Review of Systems: ROS unobtainable: Yes unobtainable due to mental status Exam Narrative: General: No acute distress, alert HEENT: Atraumatic, normocephalic, mucous membranes moist CV: Regular rate and rhythm, S1, S2 Lungs: Clear to auscultation bilaterally, no rales or crackles noted, no wheezes, good air entry Abdomen: soft, nt, slightly distended Extremities: Normal to inspection Skin: No rashes noted, no lesions or wounds seen Psych: Unable to assess Objective Data Vital Signs Vital Signs: Vital Signs - 24 hr 09/25/23 11:09 09/25/23 12:00 09/25/23 16:00 Temperature 98.0 F 98.1 F Pulse Rate 131 H 114 H Pulse Rate [Bilateral Pedal (Dorsalis Pedis) Doppler] 129 H Pulse Rate [Bilateral Radial] Respiratory Rate 24 H 16 Blood Pressure 127/77 90/56 L Pulse Oximetry 100 99 Oxygen Delivery Oxygen Flow Rate 09/25/23 20:00 09/25/23 12:00 09/25/23 14:00 Temperature 98.6 F Pulse Rate 124 H 131 H 119 H Pulse Rate [Bilateral Pedal (Dorsalis Pedis) Doppler] Pulse Rate [Bilateral Radial] Respiratory Rate 22 H Blood Pressure 116/67 Pulse Oximetry 100 Oxygen Delivery Oxygen Flow Rate 09/25/23 16:00 09/25/23 18:00 09/25/23 12:00 Temperature Pulse Rate 123 H 126 H Pulse Rate [Bilateral Pedal (Dorsalis Pedis) Doppler] 131 H Pulse Rate [Bilateral Radial] Respiratory Rate Blood Pressure Pulse Oximetry Oxygen Delivery Oxygen Flow Rate 09/25/23 16:00 09/25/23 12:00 09/25/23 16:00 Temperature Pulse Rate Pulse Rate [Bilateral Pedal (Dorsalis Pedis) Doppler] 123 H Pulse Rate [Bilateral Radial] Respiratory Rate Blood Pressure Pulse Oximetry 99 100 Oxygen Delivery Nasal Cannula Nasal Cannula Oxygen Flow Rate 2 2 09/25/23 20:00 09/25/23 21:00 09/25/23 21:3
[2023-09-26 11:17] LABS: Ammonia 30 umol/L (9-30)
[2023-09-26 11:27] LABS: Glucose Point of Care 92 mg/dl (65-105)
[2023-09-26] MEDS: POTASSIUM CHLORIDE INJ 40 MEQ in SODIUM CHLORIDE 0.9% IV 500 ML 130 MEQ IVPB (11:45)
[2023-09-26] MEDS: FUROSEMIDE INJ 40 MG/4 ML VIAL IV PUSH (11:45)
[2023-09-26 12:52] LABS: Alveolar/Arterial O2 Gradient 57.4 mmHg; Base Excess ABG 6.6 mEq/l (+/-2.0); Fractional Inspired Oxygen 28 %; HCO3 ABG 32.3 mEq/l (22.0-26.0); Oxygen Content ABG 17.1 %vol (16.0-22.0); Oxygen Saturation ABG 96.2 % (95.0-100.0); Oxyhemoglobin 94.5 % THb (90.0-100.0); PCO2 ABG 50.4 mmHg (35.0-45.0); PO2 ABG 82.8 mmHg (80.0-100.0); PO2 FiO2 Ratio Arterial Blood 2.96 %; Total Hemoglobin 12.8 g/dL (12.0-18.0); pH ABG 7.424 (7.350-7.450)
[2023-09-26 12:54] LABS: Device NASAL CANNULA; Modified Allen's Test Pass; Site Drawn LEFT RADIAL
[2023-09-26] MEDS: VANCOMYCIN 1,750 MG/NS 500 ML 1,750 MG/500 ML BAG 250 MG IVPB (17:43)
[2023-09-26 18:00] LABS: Glucose Point of Care 96 mg/dl (65-105)
[2023-09-27] VITALS (15 sets, daily range): BP systolic 110–136; BP diastolic 63–86; PULSE 83–140; RESP 16–28; TEMP 36.4–38.2; O2SAT 93–100
[2023-09-27 00:07] LABS: Glucose Point of Care 97 mg/dl (65-105)
--- NOTE | 2023-09-27 00:32 | PC.NURSE ---
09/27/23 0004-Spoke with ELIZABETH Wheatley from the [facility] transfer center. Updated with Pt's current condition and the last set of VS. ELIZABETH Wheatley states that there is still no bed available at this time.
[2023-09-27] MEDS: LORazepam INJ (*CRX) 2 MG/ML VIAL 1 MG IV PUSH (02:35)
[2023-09-27 04:34] LABS: Basophils Percent Auto 0.1 % (0.2-1.2); Hematocrit 24.4 % (42.0-52.0); Immature Granulocyte Absolute 0.09 K/mm3 (0.00-0.031); Immature Granulocyte Percent A 0.6 % (0-0.5); Lymphocytes Absolute Auto 0.33 K/mm3 (0.9-3.2); Lymphocytes Percent Auto 2.3 % (18.3-44.2); Mean Corpuscular HGB Conc 32.8 g/dl (32-36); Mean Corpuscular Hemoglobin 35.6 pg (26-34); Mean Corpuscular Volume 108.4 fl (80-100); Mean Platelet Volume 9.8 fl (7.4-10.4); Monocytes Percent Auto 6.9 % (2.6-8.5); Neutrophils Absolute Auto 12.8 K/mm3 (1.3-6.7); Neutrophils Percent Auto 90.1 % (45.5-73.1); Platelet Count Result 159 k/mm3 (150-375); Red Blood Count 2.25 M/mm3 (4.6-6.20); Red Cell Distribution Width 18.4 % (11.5-14.5); White Blood Count 14.2 K/mm3 (4.5-10.0)
[2023-09-27 04:48] LABS: Alanine Aminotransferase 78 U/L (6-50); Albumin Level 1.8 g/dL (3.5-5.1); Alkaline Phosphatase 811 U/L (38-126); Anion Gap 3 mmol/L (8-16); Aspartate Amino Transferase 98 U/L (17-59); Bilirubin,Total 0.6 mg/dL (0.2-1.3); Blood Urea Nitrogen 21 mg/dL (9-20); Calcium 7.8 mg/dL (8.4-10.2); Carbon Dioxide 36 mmol/L (22-30); Chloride 102 mmol/L (98-107); Estimated CRCL calculation 85 ml/min; Estimated Glomerular Filt Rate > 60; Glucose 100 mg/dL (65-110); Potassium 3.3 mmol/L (3.4-5.0); Sodium 141 mmol/L (137-145)
[2023-09-27 05:11] LABS: Platelet Estimate Adequate (Adequate)
[2023-09-27 05:13] LABS: Anisocytosis 1+ (NORMAL); Schistocytes None Seen (NORMAL)
[2023-09-27 05:14] LABS: Target Cells 1+ (NORMAL)
[2023-09-27] MEDS: MEROPENEM 1 GM/NS 100 ML 1 GM/100 ML BAG IVPB ×2 (05:58→16:36)
[2023-09-27 08:11] LABS: Glucose Point of Care 86 mg/dl (65-105)
[2023-09-27] MEDS: THIAMINE 500 MG/NS 100 ML 500 MG/100 ML BAG 200 MG IVPB (08:52)
--- NOTE | 2023-09-27 10:31 | PM.IMPN ---
Progress Note: A&P Assessment and Plan (1) Sepsis: Qualifiers: Sepsis type: sepsis due to unspecified organism Code(s): A41.9 - Sepsis, unspecified organism Status: Acute Assessment and Plan: Vancomycin and Zosyn, initiated 09/24 Leuk increased, switched to meropenem 09/25 Cultures in progress, suspect source is intraabdominal 09/25: PCT elevated at 4.7, CRP 34.9, cont current management, cont to monitor, stable with guarded prognosis 09/26: recheck labs tomorrow, cont current management 09/27: all labs looking better, alk phos up to over 800 and CEA elevated, concerning for underlying malignancy, f/u para cytology (2) Cirrhosis: Code(s): K74.60 - Unspecified cirrhosis of liver Status: Acute Assessment and Plan: Consult GI appreciated, check ammonia, lactulose enema given Paracentesis 09/25 with over 4L removed, cytology and studies sent CT abd + pelvis noted with suspected chronic panc with possible necrosis 09/25: Lasix given x 1 09/27: improving (3) Pancreatitis: Code(s): K85.90 - Acute pancreatitis without necrosis or infection, unspecified Status: Acute Assessment and Plan: Patient awaiting bed at tertiary center Supportive care, NPO See above (4) Alcohol dependence: Code(s): F10.20 - Alcohol dependence, uncomplicated Status: Acute Assessment and Plan: On CIWA protocol, ativan as needed Continue to monitor (5) Chronic diarrhea: Code(s): K52.9 - Noninfective gastroenteritis and colitis, unspecified Status: Acute Assessment and Plan: Continue to monitor (6) Pneumonia: Code(s): J18.9 - Pneumonia, unspecified organism Status: Acute Assessment and Plan: noted on CT, cont vanc + meropenem, see above 09/27: improving Plan DVT prophylaxis with SCDs GI prophylaxis not indicated Code status DNR Subjective Date/time seen: 09/27/23 10:31 Interval history: 63-year-old male with history of cirrhosis and alcohol dependence being brought in for altered mental status and is currently being treated for necrotizing pancreatitis, on the waiting list for a bed at [facility]. No overnight events noted. About the same as yesterday. Mentation unchanged. No fevers. Review of Systems Review of Systems: ROS unobtainable: Yes unobtainable due to mental status Exam Narrative: General: No acute distress, alert HEENT: Atraumatic, normocephalic, mucous membranes moist CV: Regular rate and rhythm, S1, S2 Lungs: Clear to auscultation bilaterally, no rales or crackles noted, no wheezes, good air entry Abdomen: soft, nt, slightly distended Extremities: Normal to inspection Skin: No rashes noted, no lesions or wounds seen Psych: Unable to assess Objective Data Vital Signs Vital Signs: Vital Signs - 24 hr 09/26/23 11:18 09/26/23 12:00 09/26/23 14:00 Temperature 98.8 F Pulse Rate 133 H 135 H 133 H Pulse Rate [Monitor] Respiratory Rate 28 H Blood Pressure 123/80 Pulse Oximetry 91 Oxygen Delivery Oxygen Flow Rate 09/26/23 16:00 09/26/23 12:00 09/26/23 16:00 Temperature 98.5 F Pulse Rate 132 H 126 H Pulse Rate [Monitor] Respiratory Rate 24 H Blood Pressure 109/71 Pulse Oximetry 100 96 Oxygen Delivery Nasal Cannula Oxygen Flow Rate 2 09/26/23 17:58 09/26/23 16:00 09/26/23 20:00 Temperature 97.7 F Pulse Rate 123 H 120 H Pulse Rate [Monitor] Respiratory Rate 22 H Blood Pressure 107/57 L Pulse Oximetry 99 100 Oxygen Delivery Nasal Cannula Oxygen Flow Rate 2 09/27/23 00:00 09/26/23 20:00 09/26/23 22:00 Temperature 97.7 F Pulse Rate 130 H 125 H 127 H Pulse Rate [Monitor] Respiratory Rate 22 H Blood Pressure 117/63 Pulse Oximetry 100 Oxygen Delivery Oxygen Flow Rate 09/26/23 20:00 09/26/23 20:00 09/27/23 00:00 Temperature Pulse Rate 120 H Pulse Rate [Monitor] 120 H
[2023-09-27 11:52] LABS: Glucose Point of Care 101 mg/dl (65-105)
[2023-09-27 12:06] LABS: CRP 23.3 mg/dL (<1.0)
[2023-09-27 12:45] LABS: Procalcitonin 1.4 ng/mL
--- NOTE | 2023-09-27 13:23 | WPDGIPROGNO ---
Progress Note: A&P Assessment and Plan (1) Cirrhosis, alcoholic: Code(s): K70.30 - Alcoholic cirrhosis of liver without ascites Status: Acute Assessment and Plan: decompensated cirrhosis, he is heavy drinker. I talked to 2 daughters today. He has been losing weight last few weeks and acting more confused lately but otherwise he has not seen a doctor for quite sometime and used to be relatively healthy despite drinking heavily until few months ago Here complicated with sepsis (pneumonia and SBP), confusion, alcohol withdrawal, wasting/failure to thrive still lethargic- if does not wake up much then consider DHT for feeding (family is ok with enteral feeding) prognosis is guarded- daugthers aware (2) Spontaneous bacterial peritonitis: Code(s): K65.2 - Spontaneous bacterial peritonitis Status: Acute Assessment and Plan: fluid is consistent with SBP- he is on antibiotics, renal function normal he also has pneumonia (3) Sepsis: Qualifiers: Sepsis type: sepsis due to unspecified organism Code(s): A41.9 - Sepsis, unspecified organism Status: Acute Assessment and Plan: on abx (4) Elevated liver enzymes: Code(s): R74.8 - Abnormal levels of other serum enzymes Status: Acute Assessment and Plan: from cirrhosis/sepsis/alcohol (5) Pneumonia: Code(s): J18.9 - Pneumonia, unspecified organism Status: Acute (6) Leukocytosis: Code(s): D72.829 - Elevated white blood cell count, unspecified Status: Acute Assessment and Plan: trendind down (7) Delirium, withdrawal, alcoholic: Code(s): F10.931 - Alcohol use, unspecified with withdrawal delirium Status: Acute Assessment and Plan: [facility] protocol will add also xifaxan- could have component of liver encephalopathy Subjective Date/time seen: 09/27/23 13:23 Interval history: still lethargic and restraints. Two daughters at bedside Review of Systems Review of Systems: All systems reviewed & are unremarkable except as noted in HPI and below Exam Narrative: lethargic Const: Nutritional Appearance: thin HENMT: Head: normal to inspection Eyes: Sclera: sclerae normal Neck: Neck: normal visual inspection Chest: Chest palpation & inspection: normal inspection of the chest Resp: Effort & Inspection: decreased respiratory effort ( shallow breathing) Auscultation: clear to auscultation bilaterally Cardio: Rate: regular rate Rhythm: regular rhythm GI: GI Palp: No abdominal tenderness, Yes Soft to palpation and No Tenderness to palpation present (GI) Auscultation: normal bowel sounds Skin: General skin exam: normal color Neuro: Other: lethargic, he will wake up but not really talking much Extrem: General: normal to inspection Psych: Other: on withdrawal Objective Data Vital Signs Vital Signs: Vital Signs - 24 hr 09/26/23 14:00 09/26/23 16:00 09/26/23 16:00 Temperature 98.5 F Pulse Rate 133 H 132 H 126 H Pulse Rate [Monitor] Respiratory Rate 24 H Blood Pressure 109/71 Pulse Oximetry 100 Oxygen Delivery Oxygen Flow Rate 09/26/23 17:58 09/26/23 16:00 09/26/23 20:00 Temperature 97.7 F Pulse Rate 123 H 120 H Pulse Rate [Monitor] Respiratory Rate 22 H Blood Pressure 107/57 L Pulse Oximetry 99 100 Oxygen Delivery Nasal Cannula Oxygen Flow Rate 2 09/27/23 00:00 09/26/23 20:00 09/26/23 22:00 Temperature 97.7 F Pulse Rate 130 H 125 H 127 H Pulse Rate [Monitor] Respiratory Rate 22 H Blood Pressure 117/63 Pulse Oximetry 100 Oxygen Delivery Oxygen Flow Rate 09/26/23 20:00 09/26/23 20:00 09/27/23 00:00 Temperature Pulse Rate 120 H Pulse Rate [Monitor] 120 H 130 H Respiratory Rate 22 H Blood Pressure 107/57 L 117/63 Pulse Oximetry 100 Oxygen Delivery Nasal Cannula Oxygen Flow Rate 2 09/27/23 00:00 09/27/23 00:00 09/27/23
[2023-09-27] MEDS: KCL 20 MEQ/D5/0.9% SOD CHL 1,000 ML 75 ML IV CONT (15:44)
[2023-09-27 16:32] LABS: Glucose Point of Care 124 mg/dl (65-105)
[2023-09-27 17:26] LABS: Vancomycin Trough 17.8 ug/mL (10.0-20.0)
[2023-09-27] MEDS: VANCOMYCIN 1,750 MG/NS 500 ML 1,750 MG/500 ML BAG 250 MG IVPB (17:58)
[2023-09-30 19:28] LABS: CA 19-9 31 U/mL (<34)
[2023-10-01 08:53] LABS: Amylase Peritoneal Fluid 17 U/L; Lipase Peritoneal Fluid 67 U/L (<10)
[2023-10-03 05:46] LABS: Glucose Peritoneal Fluid 99 mg/dL; LDH Peritoneal Fluid 2385 U/L (<63); Total Protein Peritoneal Fluid <3.0 g/dL
[2023-10-04 22:35] LABS: Albumin Peritoneal Fluid 0.5 g/dL
--- NOTE | 2023-10-07 14:15 | PM.TDS ---
Transfer Discharge Sum: Prov Provider Date of admission: 09/24/23 15:10 Primary care physician: PHYSICIAN NOT ON STAFF Admitting clinician: Romi Tomlinson MD Consults: 09/25/23 Consult to Physician Routine Comment: left voicemail with Dr. Inman @[phone](ER,US) Consulting Provider: Gurinder Inman train caller/MD group to consult: GI Reason for consultation: pancreatitis, etoh liver disease, ascites Has provider been notified: Yes 09/26/23 Consult to Physician Routine Comment: spoke with Stacy Patel @[phone](ER,US) Consulting Provider: Stacy Patel train caller/MD group to consult: cardiology Reason for consultation: abnormal tachy, short [place] interval Has provider been notified: Yes DS: Admitting Diagnosis Discharge Date 09/27/23 Admitting Diagnosis Altered mental status and abdominal pain DS: Discharge Diagnosis Discharge Diagnosis (1) Sepsis: Qualifiers: Sepsis type: sepsis due to unspecified organism Code(s): A41.9 - Sepsis, unspecified organism Status: Acute Assessment and Plan: Vancomycin and Zosyn, initiated 09/24 Leuk increased, switched to meropenem 09/25 Cultures in progress, suspect source is intraabdominal 09/25: PCT elevated at 4.7, CRP 34.9, cont current management, cont to monitor, stable with guarded prognosis 09/26: recheck labs tomorrow, cont current management 09/27: all labs looking better, alk phos up to over 800 and CEA elevated, concerning for underlying malignancy, f/u para cytology (2) Cirrhosis: Code(s): K74.60 - Unspecified cirrhosis of liver Status: Acute Assessment and Plan: Consult GI appreciated, check ammonia, lactulose enema given Paracentesis 09/25 with over 4L removed, cytology and studies sent CT abd + pelvis noted with suspected chronic panc with possible necrosis 09/25: Lasix given x 1 09/27: improving (3) Pancreatitis: Code(s): K85.90 - Acute pancreatitis without necrosis or infection, unspecified Status: Acute Assessment and Plan: Patient awaiting bed at tertiary center Supportive care, NPO See above (4) Alcohol dependence: Code(s): F10.20 - Alcohol dependence, uncomplicated Status: Acute Assessment and Plan: On CIWA protocol, ativan as needed Continue to monitor (5) Chronic diarrhea: Code(s): K52.9 - Noninfective gastroenteritis and colitis, unspecified Status: Acute Assessment and Plan: Continue to monitor (6) Pneumonia: Code(s): J18.9 - Pneumonia, unspecified organism Status: Acute Assessment and Plan: noted on CT, cont vanc + meropenem, see above 09/27: improving Plan DVT prophylaxis with SCDs GI prophylaxis not indicated Code status DNR Transfer Discharge Sum: Med Medications Active and Home Medications: Home Medications alprazolam 0.25 mg tablet 0.25 mg PO HS 09/24/23 [History Confirmed 09/24/23] amlodipine 5 mg tablet 5 mg PO DAILY 09/24/23 [History Confirmed 09/24/23] nphszgqasdbdcebq-zacidihqjkequqv-kixlceiic 2 mg-30 mg-200 mg tablet (Advil Allergy Sinus) 1 tablet PO ONCE 09/24/23 [History Confirmed 09/24/23] dextroamphetamine-amphetamine 20 mg tablet 20 mg PO BID 09/24/23 [History Confirmed 09/24/23] ibuprofen 600 mg tablet 600 mg PO TID PRN Pain 09/24/23 [History Confirmed 09/24/23] omeprazole 20 mg capsule,delayed release 20 mg PO DAILY 09/24/23 [History Confirmed 09/24/23] oxycodone-acetaminophen 10 mg-325 mg tablet 1 tablet PO Q4H 09/24/23 [History Confirmed 09/24/23] Transfer Discharge Sum: Hosp Hospital Course Hospital course: 63-year-old male with history of cirrhosis and alcohol dependence being brought in for altered mental status and is currently being treated for necrotizing pancreatitis, on the waiting list for a bed at [facility]. Vancomycin and Zosyn, initiated 09/24 Leuk increased, switched to meropenem 09/25 Cultures in progress, suspect source is intraabdominal
== END 2023-09-27 20:13 | disposition short-term general hospital (02) | DRG 871 ==
LOC: ANHED 09-24 15:09 → ANHIMU 09-24 15:23
PROVIDERS: Emergency Medicine; Internal Medicine; Internal Medicine Gastroenterology; Admitting Provider Family Medicine; Emergency Provider Family Medicine; Visit Provider Student in an Organized Health Care Education/Training Program
DX: A41.9 Sepsis, unspecified organism (principal); J18.9 Pneumonia, unspecified organism; K65.2 Spontaneous bacterial peritonitis; K85.91 Acute pancreatitis with uninfected necrosis, unspecified; K76.0 Fatty (change of) liver, not elsewhere classified; K70.30 Alcoholic cirrhosis of liver without ascites; K76.82 Hepatic encephalopathy; R19.7 Diarrhea, unspecified; F10.20 Alcohol dependence, uncomplicated; Z20.822 Contact with and (suspected) exposure to COVID-19; R63.4 Abnormal weight loss; D53.9 Nutritional anemia, unspecified; D72.829 Elevated white blood cell count, unspecified; R62.7 Adult failure to thrive; Z87.891 Personal history of nicotine dependence; Z68.20 Body mass index [BMI] 20.0-20.9, adult
CPT/HCPCS: 36415; 36600; 49083; 70450; 71045; 71275; 74176; 74177; 80048; 80053; 80202; 80307; 81001; 82042; 82140; 82150; 82274; 82375; 82378; 82550; 82805; 82945; 82948; 83050; 83605; 83615; 83690; 83735; 83880; 84100; 84145; 84157; 84484; 85025; 85027; 85380; 85384; 85610; 85730; 86140; 86301; 87040; 87070; 87075; 87205; 87637; 87641; 89051; 93005; 94640; 96361; 96365; 96366; 96367; 96368; 96372; 96375; 96376; 99285; J1630; J1940; J2060; J2185; J2543; J3370; J3411; J3475; J3480; J7030; J7040; P9047; Q9967